=== PATIENT | female | born 1995 ===

== ENCOUNTER 2018-05-16 09:56 | Outpatient (CLI) | payer OTHER ==
--- NOTE | 2018-05-16 12:16 | ULT ---
ABDOMINAL ULTRASOUND: Date: 05-16-18 Comparison: None. History: Transaminitis/abnormal liver function tests. Technique: Multiplanar grayscale sonographic imaging of the abdomen obtained. FINDINGS: The imaged pancreas is unremarkable. The distal body and tail are obscured by bowel gas. There is no focal liver lesion or intrahepatic biliary dilatation noted. The CBD measures 1-2 mm, wit hin normal limits. Gallbladder wall is normal in thickness. No pericholecystic fluid or gallstones are noted. The sonogr apher reports a negative Lei's sign. The right kidney measures 11.9 x 3.1 x 6.0 cm and demonstrates no hydronephrosis, stone, or mass lesi on. The left kidney measures 11.0 x 4.2 x 5.2 cm and demonstrates no stone, hydronephrosis or mass. The spleen demonstrates nonspecific enlargement, measuring 15.4 x 5.3 x 5.9 cm. IMPRESSION: Splenomegaly. No evidence for cholelithiasis, cholecystitis, or biliary dilatation. POS: [facility]
== END 2018-05-16 09:57 | disposition home or self-care (01) ==
LOC: ULT 09:56
PROVIDERS: ATTEND Internal Medicine
DX: R74.0 Nonspecific elevation of levels of transaminase and lactic acid dehydrogenase [LDH] (principal); R16.1 Splenomegaly, not elsewhere classified
CPT/HCPCS: 76700